=== PATIENT | female | born 1960 | race Caucasian/White ===

== ENCOUNTER → 2023-11-28 10:14 | Outpatient (REF) | payer OTHER, SELFPAY | LOC: HWRCS 10:14 | PROVIDERS: ATTENDING PHYSICIAN Nurse Practitioner Gerontology; FAMILY PHYSICIAN Internal Medicine | DX: I25.10 Atherosclerotic heart disease of native coronary artery without angina pectoris (principal) | CPT/HCPCS: 93306 ==